=== PATIENT | male | born 1945 | race Two or more races ===

== ENCOUNTER 2019-08-13 14:15 | Emergency (ER) | payer MEDICAID ==
[~2019-08-13] VITALS: Ht 162.6 cm; Wt 75.0 kg
[2019-08-13] MEDS ORDERED: ONDANSETRON HCL 4MG/2ML INJ IV STA (19:52)
[2019-08-13] MEDS ORDERED: SODIUM CHLORIDE 0.9% 1,000 ML IV ONE (19:52)
[2019-08-13] MEDS ORDERED: KETOROLAC 30MG/ML VIAL IV STA (19:52)
[2019-08-13 21:22] LABS: CLARITY URINE CLEAR (CLEAR); COLOR URINE YELLOW (YELLOW); KETONES URINE NEGATIVE (NEGATIVE); LEUKOCYTE ESTERASE URINE NEGATIVE (NEGATIVE); NITRITE URINE NEGATIVE (NEGATIVE); OCCULT BLOOD URINE NEGATIVE (NEGATIVE); PH URINE 5.5 (4.5-8.0); PROTEIN URINE NEGATIVE (NEGATIVE); SPECIFIC GRAVITY URINE 1.006 (1.005-1.030); UROBILINOGEN URINE 0.2 E.U./dL (0.2-1.0)
[2019-08-13 21:46] LABS: BASOPHILS % 1.7 % (0.0-2.0); EOSINOPHILS % 1.7 % (0.0-5.0); HEMATOCRIT. 31.1 % (42.0-52.0); HEMOGLOBIN. 10.6 g/dL (14.0-18.0); LYMPHOCYTES % 32.9 % (20.0-50.0); MEAN CORPUSCULAR HEMOGLOBIN 34.3 pg (28.0-32.0); MEAN CORPUSCULAR VOLUME 100.5 fL (80.0-94.0); MEAN PLATELET VOLUME 8.3 fl (7.4-10.4); NEUTROPHILS % 55.7 % (40.0-76.0); PLATELET 349 x1000/uL (130-400); RED CELL DISTRIBUTION WIDTH 13.5 % (11.6-14.6)
[2019-08-13 21:48] LABS: CHLORIDE 104 mEq/L (98-107)
[2019-08-13 21:50] LABS: INR 1.1; PROTHROMBIN TIME 10.8 sec (9.6-11.0)
[2019-08-13] MEDS ORDERED: MAGNESIUM CITRATE 300ML SOLUTION PO ONE (23:00)
[2019-08-14 00:39] VITALS: BP 125/63
== END 2019-08-14 00:42 | disposition home or self-care (01) ==
LOC: ER 14:15
DX: K80.50 Calculus of bile duct without cholangitis or cholecystitis without obstruction (principal); K80.20 Calculus of gallbladder without cholecystitis without obstruction; K59.00 Constipation, unspecified; J44.9 Chronic obstructive pulmonary disease, unspecified; I10 Essential (primary) hypertension; Z87.891 Personal history of nicotine dependence; Z87.19 Personal history of other diseases of the digestive system
CPT/HCPCS: 36415; 74176; 76705; 80053; 81003; 83690; 85025; 85610; 93005; 96374; 96375; 99284; J1885; J2405; J7030; Z7610

== ENCOUNTER 2021-07-14 08:52 | Emergency (ER) | payer MEDICAID ==
[~2021-07-14] VITALS: Ht 154.9 cm; Wt 66.0 kg
[2021-07-14 12:04] LABS: CLARITY URINE CLEAR (CLEAR); COLOR URINE YELLOW (YELLOW); KETONES URINE NEGATIVE (NEGATIVE); LEUKOCYTE ESTERASE URINE NEGATIVE (NEGATIVE); NITRITE URINE NEGATIVE (NEGATIVE); OCCULT BLOOD URINE NEGATIVE (NEGATIVE); PROTEIN URINE NEGATIVE (NEGATIVE); SPECIFIC GRAVITY URINE 1.016 (1.005-1.030); UROBILINOGEN URINE 0.2 E.U./dL (0.2-1.0)
[2021-07-14 12:05] LABS: BASOPHILS % 0.4 % (0.0-2.0); EOSINOPHILS % 1.8 % (0.0-5.0); LYMPHOCYTES % 29.1 % (20.0-50.0); MEAN CORPUSCULAR HEMOGLOBIN 35.9 pg (28.0-32.0); MEAN CORPUSCULAR VOLUME 107.9 fL (80.0-94.0); MEAN PLATELET VOLUME 7.3 fl (7.4-10.4); MONOCYTES % 7.5 % (2.0-8.0); NEUTROPHILS % 61.2 % (40.0-76.0); PLATELET 316 x1000/uL (130-400); RED BLOOD CELL COUNT 1.85 mill/uL (4.7-6.1); RED CELL DISTRIBUTION WIDTH 14.8 % (11.6-14.6)
[2021-07-14 12:06] LABS: CHLORIDE 106 mEq/L (98-107)
[2021-07-14 12:08] LABS: HEMATOCRIT. 19.9 % (42.0-52.0); HEMOGLOBIN. 6.6 g/dL (14.0-18.0)
[2021-07-14] MEDS ORDERED: DOCUSATE SODIUM 100MG CAPSULE PO PRN (15:00)
[2021-07-14] MEDS ORDERED: ACETAMINOPHEN 325MG TABLET PO PRN (15:00)
[2021-07-14] MEDS ORDERED: MAGNESIUM/ALUMINUM HYDROXIDE/SIMETHICONE 30ML UDC PO PRN (15:00)
[2021-07-14] MEDS ORDERED: CLONIDINE 0.1MG TABLET PO PRN (15:00)
[2021-07-14] MEDS ORDERED: ONDANSETRON HCL 4MG/2ML INJ IV PRN (15:00)
[2021-07-14] MEDS ORDERED: HYDROCODONE/ACETAMINOPHEN 5/325MG TABLET PO PRN (15:00)
[2021-07-14] MEDS ORDERED: GUAIFENESIN 200MG/10ML SUGAR FREE UDC PO PRN (15:00)
[2021-07-14] MEDS ORDERED: NALOXONE HCL 0.4MG/ML VIAL IV PRN (15:15)
[2021-07-14 15:44] LABS: TOTAL IRON BINDING CAPACITY 303 ug/dL (250-450)
[2021-07-14 18:10] VITALS: BP 138/51
[2021-07-14 21:06] VITALS: BP 130/71
== END 2021-07-14 21:10 | disposition left against medical advice (07) ==
LOC: ER 08:52 → CANBEDREQ 21:26
DX: D64.9 Anemia, unspecified (principal); I10 Essential (primary) hypertension; J44.1 Chronic obstructive pulmonary disease with (acute) exacerbation; Z88.1 Allergy status to other antibiotic agents; Z88.2 Allergy status to sulfonamides
CPT/HCPCS: 36415; 80053; 81003; 83540; 83550; 85025; 86850; 86900; 86920; 93970; 99285; 99291; P9016

== ENCOUNTER 2022-06-07 08:46 | Emergency (ER) | payer MEDICAID, OTHER ==
[~2022-06-07] VITALS: Ht 172.7 cm; Wt 78.0 kg
[2022-06-07 08:55] VITALS: BP 125/56
[2022-06-07 12:05] LABS: CLARITY URINE CLEAR (CLEAR); COLOR URINE YELLOW (YELLOW); KETONES URINE NEGATIVE (NEGATIVE); LEUKOCYTE ESTERASE URINE NEGATIVE (NEGATIVE); NITRITE URINE NEGATIVE (NEGATIVE); OCCULT BLOOD URINE NEGATIVE (NEGATIVE); PROTEIN URINE NEGATIVE (NEGATIVE); SPECIFIC GRAVITY URINE 1.019 (1.005-1.030); UROBILINOGEN URINE 0.2 E.U./dL (0.2-1.0)
== END 2022-06-07 12:35 | disposition home or self-care (01) ==
LOC: ER 08:46
DX: N43.3 Hydrocele, unspecified (principal); F41.9 Anxiety disorder, unspecified; J44.9 Chronic obstructive pulmonary disease, unspecified; N40.0 Benign prostatic hyperplasia without lower urinary tract symptoms; Z88.8 Allergy status to other drugs, medicaments and biological substances; Z88.2 Allergy status to sulfonamides
CPT/HCPCS: 76870; 81003; 93976; 99284

== ENCOUNTER 2022-08-29 10:35 | Emergency (ER) | payer MEDICAID, OTHER ==
[~2022-08-29] VITALS: Ht 170.2 cm; Wt 82.0 kg
[2022-08-29 10:41] VITALS: BP 143/118
[2022-08-29 12:11] LABS: CLARITY URINE CLEAR (CLEAR); COLOR URINE YELLOW (YELLOW); KETONES URINE NEGATIVE (NEGATIVE); LEUKOCYTE ESTERASE URINE NEGATIVE (NEGATIVE); NITRITE URINE NEGATIVE (NEGATIVE); OCCULT BLOOD URINE NEGATIVE (NEGATIVE); PH URINE 5.5 (4.5-8.0); PROTEIN URINE NEGATIVE (NEGATIVE); SPECIFIC GRAVITY URINE 1.007 (1.005-1.030); UROBILINOGEN URINE 0.2 E.U./dL (0.2-1.0)
[2022-08-29] MEDS ORDERED: IBUPROFEN 600MG TABLET PO ONE (13:00)
== END 2022-08-29 13:03 | disposition home or self-care (01) ==
LOC: ER 10:35
DX: N50.82 Scrotal pain (principal); F41.9 Anxiety disorder, unspecified; J44.9 Chronic obstructive pulmonary disease, unspecified; I10 Essential (primary) hypertension; Z88.2 Allergy status to sulfonamides
CPT/HCPCS: 76870; 81003; 93976; 99284

== ENCOUNTER 2023-06-21 08:47 | Emergency (ER) | payer MEDICAID ==
[~2023-06-21] VITALS: Ht 167.6 cm; Wt 77.0 kg
[2023-06-21 09:10] VITALS: TEMP 98.3; O2SAT 97
[2023-06-21 09:37] LABS: CLARITY URINE CLEAR (CLEAR); COLOR URINE YELLOW (YELLOW); GLUCOSE URINE NEGATIVE (NEGATIVE); KETONES URINE NEGATIVE (NEGATIVE); LEUKOCYTE ESTERASE URINE NEGATIVE (NEGATIVE); NITRITE URINE NEGATIVE (NEGATIVE); OCCULT BLOOD URINE NEGATIVE (NEGATIVE); PROTEIN URINE NEGATIVE (NEGATIVE); SPECIFIC GRAVITY URINE 1.013 (1.005-1.030); UROBILINOGEN URINE 0.2 E.U./dL (0.2-1.0)
[2023-06-21 09:45] VITALS: BP 127/70; PULSE 100; RESP 18
[2023-06-21] MEDS ORDERED: IBUPROFEN 600MG TABLET PO ONE (09:45)
[2023-06-21 09:47] LABS: BASOPHILS % 1.3 % (0.0-2.0); DIFFERENTIAL COMMENT 0; HEMATOCRIT. 25.9 % (42.0-52.0); HEMOGLOBIN. 8.8 g/dL (14.0-18.0); LYMPHOCYTES % 21.8 % (20.0-50.0); MEAN CORPUSCULAR HEMOGLOBIN 35.3 pg (28.0-32.0); MEAN CORPUSCULAR HGB CONC 33.8 g/dL (31.0-37.0); MEAN CORPUSCULAR VOLUME 104.5 fL (80.0-94.0); MONOCYTES % 5.9 % (2.0-8.0); PLATELET 463 x1000/uL (130-400); RED BLOOD CELL COUNT 2.48 mill/uL (4.7-6.1); RED CELL DISTRIBUTION WIDTH 15.2 % (11.6-14.6); WHITE BLOOD COUNT 6.8 x1000/uL (4.5-11.0)
[2023-06-21 09:53] LABS: CHLORIDE 103 mEq/L (98-107); INDEX HEMOLYSI 1 (1-3); INDEX ICTERIC 1 (1-4); INDEX LIPEMIC 1 (1-3); POTASSIUM 4.1 mEq/L (3.5-5.1); SODIUM 137 mEq/L (136-145)
[2023-06-21 10:03] LABS: ALANINE AMINOTRANSFERASE 33 IU/L (13-61); ALBUMIN 3.3 g/dL (3.4-5.0); ASPARTATE AMINOTRANSFERASE 18 IU/L (15-37); BILIRUBIN TOTAL 0.5 mg/dL (0.1-1.0); CALCIUM 9.3 mg/dL (8.5-10.1); CARBON DIOXIDE 27 mEq/L (21-32); CREATININE 0.8 mg/dL (0.6-1.3); GLUCOSE 115 mg/dL (70-105); PROTEIN TOTAL 9.2 g/dL (6.0-8.3); UREA NITROGEN BLOOD 14 mg/dL (7-21)
[2023-06-21] MEDS ORDERED: AMOX1TAB16 MT (12:49)
[2023-06-21] MEDS ORDERED: AZIT250T12 MT (12:49)
[2023-06-21] MEDS ORDERED: ALBU18HF2 IH (12:49)
== END 2023-06-21 13:23 | disposition home or self-care (01) ==
LOC: ER 08:47
DX: J18.1 Lobar pneumonia, unspecified organism (principal); I10 Essential (primary) hypertension; Z88.2 Allergy status to sulfonamides
CPT/HCPCS: 36415; 71045; 74176; 80053; 81003; 85025; 99285

== ENCOUNTER 2024-06-26 07:29 | Emergency (ER) | payer MEDICAID ==
[~2024-06-26] VITALS: Ht 167.6 cm; Wt 64.0 kg
[~2024-06-26 07:29] MED LIST: ALBU18HF2 IH; AMOX1TAB16 MT; AZIT250T12 MT
[2024-06-26 07:41] VITALS: O2SAT 96
[2024-06-26 08:32] LABS: BASOPHILS % 1.9 % (0.0-2.0); EOSINOPHILS % 6.8 % (0.0-5.0); HEMATOCRIT. 28.8 % (42.0-52.0); HEMOGLOBIN. 9.4 g/dL (14.0-18.0); LYMPHOCYTES % 31.8 % (20.0-50.0); MEAN CORPUSCULAR HEMOGLOBIN 35.8 pg (28.0-32.0); MEAN CORPUSCULAR HGB CONC 32.5 g/dL (31.0-37.0); MEAN CORPUSCULAR VOLUME 110.1 fL (80.0-94.0); MEAN PLATELET VOLUME 7.9 fl (7.4-10.4); MONOCYTES % 8.8 % (2.0-8.0); NEUTROPHILS % 50.7 % (40.0-76.0); PLATELET 238 x1000/uL (130-400); RED BLOOD CELL COUNT 2.62 mill/uL (4.7-6.1); WHITE BLOOD COUNT 3.1 x1000/uL (4.5-11.0)
[2024-06-26 08:38] LABS: CHLORIDE 106 mEq/L (98-107); SODIUM 141 mEq/L (136-145)
[2024-06-26 08:39] LABS: ADD RBC MORPHOLOGY YES; CARBON DIOXIDE 29 mEq/L (21-32); DIFFERENTIAL COMMENT 1
[2024-06-26 08:40] LABS: CALCIUM 9.7 mg/dL (8.7-10.4)
[2024-06-26 08:44] LABS: GLUCOSE 104 mg/dL (70-105)
[2024-06-26 08:45] LABS: UREA NITROGEN BLOOD 17 mg/dL (9-23)
[2024-06-26 08:46] LABS: ALANINE AMINOTRANSFERASE 13 IU/L (10-49); ALBUMIN 4.6 g/dL (3.2-4.8); ASPARTATE AMINOTRANSFERASE 18 IU/L (<34)
[2024-06-26 08:47] LABS: BILIRUBIN DIRECT 0.4 mg/dL (<=3.0); BILIRUBIN TOTAL 1.2 mg/dL (0.1-1.0); PROTEIN TOTAL 7.1 g/dL (6.0-8.3)
[2024-06-26 10:16] LABS: CLARITY URINE CLEAR (CLEAR); COLOR URINE YELLOW (YELLOW); GLUCOSE URINE NEGATIVE (NEGATIVE); KETONES URINE NEGATIVE (NEGATIVE); LEUKOCYTE ESTERASE URINE NEGATIVE (NEGATIVE); NITRITE URINE NEGATIVE (NEGATIVE); OCCULT BLOOD URINE NEGATIVE (NEGATIVE); PROTEIN URINE NEGATIVE (NEGATIVE); SPECIFIC GRAVITY URINE 1.013 (1.005-1.030); UROBILINOGEN URINE 0.2 E.U./dL (0.2-1.0)
[2024-06-26] MEDS: ACETAMINOPHEN 325MG TABLET PO ONE (10:33)
[2024-06-26] MEDS: IBUPROFEN 600MG TABLET PO ONE (10:33)
[2024-06-26] MEDS ORDERED: TOPUD MT (10:45)
[2024-06-26] MEDS ORDERED: TAMS-11 MT (10:45)
[2024-06-26] MEDS ORDERED: PYR200 MT (10:45)
[2024-06-26 10:58] VITALS: BP 119/50; PULSE 80; RESP 18; TEMP 36.94740; O2SAT 97
[2024-06-26 15:03] LABS: ANISOCYTOSIS 1+; PLATELET ESTIMATE NORMAL
== END 2024-06-26 12:25 | disposition home or self-care (01) ==
LOC: ER 08:26
DX: G89.29 Other chronic pain (principal); R10.2 Pelvic and perineal pain; I10 Essential (primary) hypertension; Z88.1 Allergy status to other antibiotic agents; Z88.2 Allergy status to sulfonamides; Z79.899 Other long term (current) drug therapy
CPT/HCPCS: 36415; 74176; 80048; 80076; 81003; 85025; 86850; 86900; 99284

== ENCOUNTER 2024-09-01 09:13 | Emergency (ER) | payer MEDICAID ==
[~2024-09-01] VITALS: Ht 167.6 cm; Wt 77.0 kg
[~2024-09-01 09:13] MED LIST changes: +PYR200 MT; +TAMS-11 MT; +TOPUD MT
[2024-09-01 09:31] VITALS: O2SAT 95
[2024-09-01] MEDS ORDERED: KETOROLAC 15MG/ML VIAL IM ONE (10:15)
[2024-09-01] MEDS ORDERED: ONDANSETRON 4MG ODT PO ONE (10:15)
[2024-09-01] MEDS: ACETAMINOPHEN 325MG TABLET PO ONE (10:41)
[2024-09-01] MEDS: KETOROLAC 15MG/ML VIAL IV ONE (10:41)
[2024-09-01] MEDS: ONDANSETRON HCL 4MG/2ML INJ IV ONE (10:42)
[2024-09-01 10:53] LABS: ADD RBC MORPHOLOGY YES; BASOPHILS % 2.2 % (0.0-2.0); DIFFERENTIAL COMMENT 1; EOSINOPHILS % 7.4 % (0.0-5.0); HEMATOCRIT. 26.7 % (42.0-52.0); HEMOGLOBIN. 8.9 g/dL (14.0-18.0); LYMPHOCYTES % 19.7 % (20.0-50.0); MEAN CORPUSCULAR HEMOGLOBIN 38.2 pg (28.0-32.0); MEAN CORPUSCULAR HGB CONC 33.4 g/dL (31.0-37.0); MEAN CORPUSCULAR VOLUME 114.3 fL (80.0-94.0); MONOCYTES % 8.8 % (2.0-8.0); NEUTROPHILS % 61.9 % (40.0-76.0); PLATELET 265 x1000/uL (130-400); RED BLOOD CELL COUNT 2.33 mill/uL (4.7-6.1); RED CELL DISTRIBUTION WIDTH 15.5 % (11.6-14.6); WHITE BLOOD COUNT 3.7 x1000/uL (4.5-11.0)
[2024-09-01 11:22] LABS: CHLORIDE 103 mEq/L (98-107); POTASSIUM 4.3 mEq/L (3.5-5.1); SODIUM 139 mEq/L (136-145)
[2024-09-01 11:23] LABS: CARBON DIOXIDE 30 mEq/L (21-32)
[2024-09-01 11:24] LABS: CALCIUM 10.2 mg/dL (8.7-10.4)
[2024-09-01 11:28] LABS: CREATININE 0.9 mg/dL (0.6-1.3); GLUCOSE 101 mg/dL (70-105); UREA NITROGEN BLOOD 17 mg/dL (9-23)
[2024-09-01 11:46] LABS: ALANINE AMINOTRANSFERASE 11 IU/L (10-49); ALBUMIN 4.6 g/dL (3.2-4.8); ASPARTATE AMINOTRANSFERASE 18 IU/L (<34); BILIRUBIN DIRECT 0.3 mg/dL (<=3.0); PROTEIN TOTAL 6.8 g/dL (6.0-8.3)
[2024-09-01 11:53] LABS: ANISOCYTOSIS 1+; PLATELET ESTIMATE NORMAL
[2024-09-01 12:35] LABS: CLARITY URINE CLEAR (CLEAR); COLOR URINE YELLOW (YELLOW); GLUCOSE URINE NEGATIVE (NEGATIVE); KETONES URINE NEGATIVE (NEGATIVE); LEUKOCYTE ESTERASE URINE NEGATIVE (NEGATIVE); NITRITE URINE NEGATIVE (NEGATIVE); OCCULT BLOOD URINE NEGATIVE (NEGATIVE); PH URINE 6.5 (4.5-8.0); PROTEIN URINE NEGATIVE (NEGATIVE); SPECIFIC GRAVITY URINE 1.014 (1.005-1.030); UROBILINOGEN URINE 0.2 E.U./dL (0.2-1.0)
[2024-09-01] MEDS ORDERED: NAPR-681 MT (12:45)
[2024-09-01 13:08] VITALS: BP 146/58; PULSE 75; RESP 18; TEMP 37.05852; O2SAT 98
[2024-09-01] MEDS ORDERED: IOHEXOL-300 100 ML BOTTLE ONE (13:54)
== END 2024-09-01 13:10 | disposition home or self-care (01) ==
LOC: ER 09:13
DX: R10.30 Lower abdominal pain, unspecified (principal); E11.9 Type 2 diabetes mellitus without complications; I10 Essential (primary) hypertension; Z88.1 Allergy status to other antibiotic agents; Z88.2 Allergy status to sulfonamides
CPT/HCPCS: 99285; 74177; 96374; 96375; 80076; 80048; 81003; 83690; 85025; 36415; J1885; Q9967; J2405

== ENCOUNTER 2024-09-10 08:18 | Emergency (ER) | payer MEDICAID ==
[~2024-09-10] VITALS: Ht 165.1 cm; Wt 70.0 kg
[~2024-09-10 08:18] MED LIST changes: +NAPR-681 MT
[2024-09-10 08:32] VITALS: TEMP 98.6; O2SAT 96
[2024-09-10 08:33] VITALS: O2SAT 100
[2024-09-10] MEDS ORDERED: IBUP-2029 MT (08:48)
[2024-09-10] MEDS ORDERED: CEPH500C2 MT (08:48)
[2024-09-10 09:07] VITALS: BP 134/46; PULSE 99; RESP 18
[2024-09-10] MEDS: CEPHALEXIN 250MG CAPSULE PO ONE (09:07)
[2024-09-10] MEDS: IBUPROFEN 600MG TABLET PO ONE (09:07)
== END 2024-09-10 09:07 | disposition home or self-care (01) ==
LOC: ER 08:29
DX: L03.115 Cellulitis of right lower limb (principal); F41.9 Anxiety disorder, unspecified; I10 Essential (primary) hypertension; J44.89 Other specified chronic obstructive pulmonary disease; Z88.1 Allergy status to other antibiotic agents; Z88.2 Allergy status to sulfonamides
CPT/HCPCS: 99283

== ENCOUNTER 2024-09-12 07:43 | Emergency (ER) | payer MEDICAID ==
[~2024-09-12] VITALS: Ht 167.6 cm; Wt 77.1 kg
[~2024-09-12 07:43] MED LIST changes: +CEPH500C2 MT; +IBUP-2029 MT
[2024-09-12 07:48] VITALS: O2SAT 98
[2024-09-12] MEDS ORDERED: GABA-1180 MT (12:03)
[2024-09-12 12:15] VITALS: BP 150/62; PULSE 82; RESP 18; TEMP 36.78072; O2SAT 98
== END 2024-09-12 12:32 | disposition home or self-care (01) ==
LOC: ER 07:43
DX: M79.672 Pain in left foot (principal); M79.671 Pain in right foot; I10 Essential (primary) hypertension; J44.89 Other specified chronic obstructive pulmonary disease; I21.9 Acute myocardial infarction, unspecified; F41.9 Anxiety disorder, unspecified; G62.9 Polyneuropathy, unspecified; Z88.2 Allergy status to sulfonamides; Z88.1 Allergy status to other antibiotic agents; Z79.899 Other long term (current) drug therapy
CPT/HCPCS: 82962; 99282

== ENCOUNTER 2025-05-12 11:58 | Emergency (ER) | payer MEDICAID ==
[~2025-05-12] VITALS: Ht 167.6 cm; Wt 62.0 kg
[~2025-05-12 11:58] MED LIST changes: +GABA-1180 MT; +IBUP-1455 MT; -IBUP-2029 MT; -TAMS-11 MT; +TAMS-54 MT
[2025-05-12 12:10] VITALS: TEMP 36.6; O2SAT 97
[2025-05-12] MEDS ORDERED: KETOROLAC 30MG/ML VIAL IM ONE (15:15)
[2025-05-12] MEDS: IBUPROFEN 600MG TABLET PO ONE (16:15)
[2025-05-12] MEDS ORDERED: IBUP-1455 MT (16:19)
[2025-05-12] MEDS ORDERED: GABA-1180 MT (16:19)
[2025-05-12 16:36] VITALS: BP 156/60; PULSE 78; RESP 18; O2SAT 100
== END 2025-05-12 16:40 | disposition home or self-care (01) ==
LOC: ER 11:58
DX: M79.605 Pain in left leg (principal); M79.604 Pain in right leg; J45.909 Unspecified asthma, uncomplicated
CPT/HCPCS: 99283; J1885